=== PATIENT | male | born 1985 | race Caucasian/White ===

== ENCOUNTER 2023-06-16 07:53 | Emergency (ER) | payer OTHER, MEDICAID, SELFPAY ==
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
[2023-06-16 08:32] VITALS: BP 137/83; PULSE 85; RESP 18; TEMP 36.6; O2SAT 99; BMI 24.3
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
--- NOTE | 2023-06-16 09:36 | PC.NURSE ---
pt to xray at this time. will administer medication when able.
[2023-06-16] MEDS: Ketorolac Tromethamine 30 MG/ML VIAL IM (09:59)
--- NOTE | 2023-06-16 10:00 | PC.NURSE ---
pt medicated per provider order. pt awaiting xray results at this time.
== END 2023-06-16 11:39 | disposition home or self-care (01) ==
PROVIDERS: Emergency Provider Emergency Medicine
DX: S39.92XA Unspecified injury of lower back, initial encounter (principal); S49.92XA Unspecified injury of left shoulder and upper arm, initial encounter; M25.512 Pain in left shoulder; R07.81 Pleurodynia; V43.52XA Car driver injured in collision with other type car in traffic accident, initial encounter; Y93.9 Activity, unspecified; Y92.410 Unspecified street and highway as the place of occurrence of the external cause; Y99.9 Unspecified external cause status; Z79.899 Other long term (current) drug therapy
CPT/HCPCS: 71101; 72100; 73030; 96372; 99283; 99284; J1885

== ENCOUNTER 2024-10-08 08:19 | Outpatient (REF) | payer OTHER, MEDICAID, SELFPAY ==
--- OUTSIDE RECORDS SUMMARY | 2024-10-08 08:52 | XMS_ITS | Encounter Summary ---
Author Organization [employer] Address [address] [place] [address] Care Team Providers Care Soccer Player Name Role Phone Lexie Correa Primary Care Provider [phone] Reason for Referral * Consultation (Routine) - Authorized Specialty Diagnoses / Procedures Referred By Edwar tomas Referred To Contact Family Medicine Diagnoses Alopecia areata, unspecified Lexie Correa FNP [address] [place] [address] Phone: tel: fax: Referral ID Status Reason Start Date Expiration Date Visits Requested Visits Authorized [id number] Authorized Specialty Services Required 10/04/2024 10/04/2025 1 1 Encounter Details Date Type Department Care Team (Late st Contact Info) Description 10/04/2024 10:30 AM EST Office Visit [facility] [address] [place] [address] [facility] [address] [place] [address] Tinea versicolor (Primary Dx); Alopecia areata, unspecified; Encounter for immunization; Healthcare maintenance; Dietary counseling; Exercise counseling Social History Tobacco Use Types Packs/Day Years Used Date Smoking Tobacco: Former Cigarettes Passive Smoke Exposure: Past Smokeless Tobacco: Former Tobacco Cessation:Counseling Given: Not Answered Depression Answer Date Recorded Patient Health Questionnaire-9 Score 0 10/04/2024 Patient Health Questionnaire-9 Score 0 10/04/2024 Last PHQ-9: Questionnaire Data Not on file 0 10/04/2024 Housing Stability Answer Date Recorded What is your housing situation today? I have hilary cerrato 10/04/[address] you li ve. Do you have problems with any of the following? None of the above 10/04/2024 Food Insecurity Answer Date Recorded Within the past 12 months, y ou worried that your food would run out before you got money to buy more: Never True 10/04/2024 Within the past 12 months,th e food you bought just didn't last and you didn't have enough money to get more: Never True 01/2025 Transportation Answer Date Recorded In the past 12 months, has l ack of transportation kept you from medical appts, meetings, work or from getting things needed for daily living? No 10/04/2024 Utilities Answer Date Recorded In the past 12 months, has t he electric, gas, oil or water company threatened to shut off services in your home? No 10/04/2024 Depression Answer Date Recorded Patient Health Questionnaire-2 Score 0 10/04/2024 Internet Access Answer Date Recorded Internet Access Q1 Yes 10/04/2024 Internet Access Q2 Not on file 10/04/2024 Sex and Gender Information Value Date Recorded Sex Assigned at Male 11/04/2022 11:07 AM EDT Legal Sex Male 11:05 AM EDT Gender Identity Male 11/04/2022 11:07 AM EDT Sexual Orientation Straight 11/04/2022 11 :07 AM EDT documented as of this encounter Last Filed Vital Signs Vital Sign Reading Time Taken Comments Blood Pressure 122/88 10/04/2024 11:15 AM EST Pulse 80 10/04/2024 11:15 AM EST Temperature 36.2 ??C (97.2 ??F) 10/04/2024 11:[address] Respiratory Rate 20 10/04/2024 11:15 AM EST Oxygen Saturation - - Inhaled Oxygen Concentration - - Weight 77.7 kg (171 lb 4 oz) 10/04/2024 11:15 AM EST Height 175.3 cm (5' 9 ) 10/04/2024 11:15 AM EST Body Mass Index 25.29 10/04/2024 11:15 AM EST documented in this encounter Progress Notes * [facility], [facility] - 10/04/2024 10:30 AM EST SUBJECTIVE Kei Ford is a 39 y.o. year old male who presents today for new patient visit. He is accompanied by his , Deysi. Acute Concerns: Wide spread body rash; worse in hot weather present X 2 years. Mild pruritus Hair loss-present for several years, worsening. Significant family history of alopecia Chronic Conditions: None. 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 HENT: Negative. Respiratory: Negative for chest tightness and shortness of breath. Cardiovascular: Negative for chest pain and palpitations. Gastrointestinal: Negative for abdominal pain. Skin: Positive for rash. OBJECTIVE Vitals: 10/04/24 1115 BP: 122/88 Pulse: 80 Resp: 20 Temp: 97.2 ??F (36.2 ??C) Physical Exam Constitutional: Appearance: Normal appearance. HENT: Head: Normocephalic. Right Ear: External ear normal. Left Ear: External ear normal. Nose: Nose normal. Eyes: Conjunctiva/sclera: Conjunctivae normal. Cardiovascular: Rate and Rhythm: Normal rate and regular rhythm. Heart sounds: Normal heart sounds. Pulmonary: Effort: Pulmonary effort is normal. Breath sounds: Normal breath sounds. Musculoskeletal: Right lower leg: No edema. Left lower leg: No edema. Skin: General: Skin is warm and dry. Capillary Refill: Capillary refill takes less than 2 seconds. Comments: Diffuse hypopigmented coalescent macules with overlying fine white scale along bilateral forearms and lower abdomen Multiple round patches of hair loss throughout scalp, some scarring. No erythema or skin flaking. Neurological: General: No focal deficit present. Mental Status: He is alert and oriented to person, place, and time. Psychiatric: Mood and Affect: Mood normal. Behavior: Behavior normal. ASSESSMENT/PLAN Tinea Versicolor -Body rash can consistent with tinea versicolor - Will treat with topical ketoconazole wash for 2 weeks - Monitor symptoms and return to clinic if no improvement Alopecia -Significant hair loss with concern for possible scarring alopecia - Will check baseline labs, thyroid study and refer to dermatology Healthcare maintenance - Excepts baseline labs and routine STI screening - Accepts flu vaccine -Tdap is listed as a care gap--pt states he received it at [facility] last week - Encouraged regular aerobic exercise within initial goal of 30 minute walk 3x/week - Encouraged balanced diet with a variety of fruits, vegetables, and lean meats. Diagnosis Plan 1. Tinea versicolor 2. Alopecia areata, unspecified TSH W/Reflex to FT4 CBC auto differential TSH W/Reflex to FT4 CBC auto differential Referral to [facility] Derm Skin Adult 3. Encounter for immunization FLU VACCINE TRIVALENT (Fluarix) 6 mo + 4. Healthcare maintenance Comprehensive Metabolic Panel Lipid Panel, Standard HIV-1/2 Antigen and Antibodies, Fourth Generation, with Reflexes Hepatitis A,B,C Profile Syphilis Screen Hemoglobin A1c Comprehensive Metabolic Panel Lipid Panel, Standard HIV-1/2 Antigen and Antibodies, Fourth Generation, with Reflexes Hepatitis A,B,C Profile Syphilis Screen Hemoglobin A1c 5. Dietary counseling 6. Exercise counseling Follow Up: 1 year routine physical, sooner pending lab results Current Outpatient Medications: famotidine (Pepcid) 20 MG tablet, Take 1 tablet (20 mg) by mouth 2 times daily., Disp: 60 tablet, Rfl: 1 Romansh Translation: Patient is bilingual and declines translation services documented in this encounter Plan of Treatment Scheduled Orders Name Type Priority Associated Diagnoses Orde r Schedule Comprehensive Metabolic Panel Lab Routine Healthcare maintenance Expected: 10/04/2024 (Approximate), Expires: 10/04/2025 Lipid Panel, Standard Lab Routine Healthcare maintenance Expected: 10/04/2024 (Approximate), Expires: 10/04/2025 HIV-1/2 Antigen and Antibodies, Fourth Generation, with Reflexes Lab Routine Healthcare maintenance Expected: 10/04/2024 (Approximate), Expires: 10/04/2025 Hepatitis A,B,C Profile Lab Routine Healthcare maintenance Expected: 10/04/2024, Expires: 10/04/2025 Syphilis Screen Lab Routine Healthcare maintenance Expected: 10/04/2024, Expires: 10/04/2025 TSH W/Reflex to FT4 Lab Routine Alopecia areata, unspecified Expected: 10/04/2024 (Approximate), Expires: 10/04/2025 Hemoglobin A1c Lab Routine Healthcare maintenance Expected: 10/04/2024 (Approximate), Expires: 10/04/2025 CBC auto differential Lab Routine Alopecia areata, unspecified Expected: 10/04/2024 (Approximate), Expires: 10/04/2025 Scheduled Referrals Name Type Priority Associated Diagnoses Orde r Schedule Referral to [facility] Derm Skin Adult Outpatient Referral Routine Alopecia areata, unspecified Expected: 10/04/2024 (Approximate), Expires: 10/04/2025 documented as of this encounter Visit Diagnoses Diagnosis Tinea versicolor- Primary Pityriasis versicolor Alopecia areata, unspecified Encounter for immunization Healthcare maintenance Dietary counseling Dietary surveillance and counseling Exercise counseling documented in this encounter Additional Health Concerns Assessment Noted Time PHQ-9 Depression Total Score: 0 10/05/19 25 11:18 AM EST documented as of this encounter Care Teams Soccer Player Relationship Specialty Start Date End Date Lexie Correa FNP [address] [place] [id number] PCP - General Family Medicine 10/04/24 documented as of this encounter
--- OUTSIDE RECORDS SUMMARY | 2024-10-08 08:52 | XMS_ITS | Encounter Summary ---
Author Organization [employer] Address [address] [place] [address] Care Team Providers Care Bill Recapitulation Clerk Name Role Phone [facility] Primary Care Provider [phone] Encounter Details Date Type Department Care Team (Latest Contact Info) Description 10/04/2024 Travel Social History Tobacco Use Types Packs/Day Years Used Date Smoking Tobacco: Former Cigarettes Passive Smoke Exposure: Past Smokeless Tobacco: Former Depression Answer Date Recorded Patient Health Questionnaire-9 [...] AM EDT documented as of this encounter Plan of Treatment Not on file documented as of this encounter Visit Diagnoses Not on filedocumented in this encounter Additional Health Concerns Assessment Noted Time PHQ-9 Depression Total Score: 0 10/05/19 11:18 AM EST documented as of this encounter Care Teams Bill Recapitulation Clerk Relationship Specialty Start Date End Date Lexie Correa FNP [address] [place] [id number] PCP - General Family Medicine 10/04/24 documented as of this encounter
--- OUTSIDE RECORDS SUMMARY | 2024-10-08 08:52 | XMS_ITS | Encounter Summary ---
Author Organization [employer] Address [address] [place] [address] Care Team Providers Care Claim Auditor Name Role Phone Unavailable Primary Care Provider Unavailabl e Encounter Details Date Type Department Care Team (Latest Contact Info) Description 10/02/2024 Travel Social History Tobacco Use Types Packs/Day Years Used Date Smoking Tobacco: Never Assessed Sex and Gender Information Value Date Recorded [...]
--- OUTSIDE RECORDS SUMMARY | 2024-10-08 08:53 | XMS_ITS | Clinical Summary ---
Author Organization [employer] Address [address] [facility] 7t [place] [address] Care Team Providers Care Technical Engineer Name Role Phone [facility] Primary Care Provider [phone] Allergies No known active allergies Medications famotidine (Pepcid) 20 MG tabletIndication s:Epigastric pain,Gastroesoph ageal reflux disease, unspecified whether esophagitis present Take 1 tablet (20 mg) by mouth 2 times daily. 60 tablet 1 4 07/25/20 25 Active ketoconazole (NIZOral) 2 % shampoo Apply topically and leave on for 5 minutes. Then rinse. Apply once daily for 2 weeks. 120 mL 1 5 Active Active Problems Problem Noted Date Diagnosed Date Varicella without complication 07/25/2024 Assessment & Plan (07/25/2024 3:06 PM EST): Drink plenty of fluids and rest Quarantine Epigastric pain 07/25/2024 Assessment & Plan (07/25/2024 3:07 PM EST): I advise patient to avoid NSAIDs, spicy and acid food, I advise to eat at the same time every day, I advise to elevate the head of the bed and take medications as prescribe GERD (gastroesophageal reflux disease) Assessment & Plan (07/25/2024 3:07 PM EST): As above Chronic migraine with aura 07/25/2024 Assessment & Plan (07/25/2024 3:08 PM EST): I advise to avoid migraine triggers like red wine, chocolate, cheese, strong perfumes For now acetaminophen PRN until varicella symptoms subside then f/u with PCP new appointment for management of chronic migraines Encounters Date Type Department Care Team Description 10/04/2024 10:30 AM EST Office Visit [facility] [address] [place] [address] Sturgis, Lexie, SECURITY DELIVERY SPECIALIST Tinea versicolor (Primary Dx); Alopecia areata, unspecified; Encounter for immunization; Healthcare maintenance; Dietary counseling; Exercise counseling 10/04/2024 Travel 10/02/2024 Travel 07/25/2024 2:40 PM EST Office Visit [facility] [address] [place] [address] Zeinab Marquez MD Epigastric pain (Primary Dx); Varicella without complication; Gastroesophageal reflux disease, unspecified whether esophagitis present; Chronic migraine with aura without status migrainosus, not intractable from Last 3 Months Immunizations Name Administration Dates Next Due Influenza, seasonal, injectable, preservative fr ee 10/04/2024 Social History Tobacco Use Types Packs/Day Years [...] Orientation Straight 11/04/2022 11 :07 AM EDT Last Filed Vital Signs Vital Sign Reading Time Taken Comments Blood Pressure 122/88 10/04/2024 11:15 AM EST Pulse 80 10/04/2024 11:15 AM EST Temperature 36.2 ??C (97.2 ??F) 10/04/2024 11:[address] Respiratory Rate 20 10/04/2024 11:15 AM EST Oxygen Saturation 96% 07/25/2024 2:27 PM EST Inhaled Oxygen Concentration - - Weight 77.7 kg (171 lb 4 oz) 10/04/2024 11:15 AM EST Height 175.3 cm (5' 9 ) 10/04/2024 11:15 AM EST Body Mass Index 25.29 10/04/2024 11:15 AM EST Plan of Treatment Health Maintenance Due Date Last Done Comments HIV Screening 1987 Lipid Panel 1987 Family Planning (PISQ) 2002 Hepatitis C Screening 2005 DTaP/Tdap/Td Vaccines (1 - Tdap) 2006 Hepatitis B Vaccines (1 of 3 - 19+ 3-dose series) 2006 COVID-19 Vaccine ( - 2023-2 5 season) 2024 Alcohol/Substance Use Screening 10/04/2025 10/04/2024 Depression Screening 10/04/2025 10/04/2024, 10/04/2024 SDOH Screening 10/04/2025 10/04/2024 Tobacco Screening 10/06/2025 10/06/2024 Zoster Vaccines (1 of 2) 2037 RSV Patients and Patients Aged 60 years or older (1 - 1-dose 75+ series) 2062 Influenza Vaccine Completed 10/04/2024 HIB Vaccines Aged Out No longer eligi ble based on patient's age to complete this topic HPV Vaccines Aged Out No longer eligi ble based on patient's age to complete this topic Hepatitis A Vaccines Aged Out No long er eligible based on patient's age to complete this topic IPV Vaccines Aged Out No longer eligi ble based on patient's age to complete this topic Meningococcal Vaccine Aged Out No sierra maya eligible based on patient's age to complete this topic Pneumococcal Vaccine: Pediatrics (0 to 5 Years) and At-Risk Patients (6 to 49) Years) Aged Out No longer eligible b ased on patient's age to complete this topic RSV under 20 months Aged Out No longe r eligible based on patient's age to complete this topic Rotavirus Vaccines Aged Out No longer eligible based on patient's age to complete this topic [facility] Care Teams Technical Engineer Relationship Specialty Start Date End Date Lexie Correa FNP [address] [place] [phone] PCP - General Family Medicine 10/04/24
[2024-10-08 11:42] LABS: MANUAL DIFF FLAG NO
[2024-10-08 11:45] LABS: Basophils Absolute Auto 0.1 X10*3/uL (0.0-0.2); Basophils Percent Auto 0.9 % (0-2); Eosinophils Absolute Auto 0.2 X10*3/uL (0.0-0.4); Eosinophils Percent Auto 2.9 % (0-4); Hematocrit 44.3 % (42.0-52.0); Hemoglobin 15.1 g/dl (14.0-18.0); Imm Gran Abs Auto 0.02 X10*3/uL (0.00-0.03); Imm Gran Pct Auto 0.3 % (0.0-0.4); Lymphocytes Absolute Auto 2.3 X10*3/uL (1.2-4.9); Mean Corpuscular HGB Conc 34.1 g/dl (31.0-36.0); Mean Corpuscular Hemoglobin 30.5 pg (27.0-33.0); Mean Corpuscular Volume 89.5 fL (80.0-98.0); Mean Platelet Volume 12.1 fL (9.4-12.4); Monocytes Absolute Auto 0.4 X10*3/uL (0.1-1.2); Monocytes Percent Auto 6.5 % (2-11); Neutrophils Absolute Auto 3.4 x10*3/uL (2.0-8.3); Neutrophils Percent Auto 53.4 % (45-73); Platelet Count 227 X10*3/uL (160-400); Red Blood Count 4.95 X10*6/uL (4.60-5.80); Red Cell Distribution Width 13.2 % (11.0-16.0); White Blood Count 6.5 X10*3/uL (4.8-10.8)
[2024-10-08 11:54] LABS: Estimated Average Glucose 105 mg/dL; Hemoglobin A1c % 5.3 % (<6.0)
[2024-10-08 12:17] LABS: Syphilis Screen Nonreactive (Nonreactive)
[2024-10-08 12:32] LABS: HBS Num1 59.44 mIU/mL (0-7.99); HBc Num1 0.07 S/CO (0.00-0.79); HIV AB/AG Nonreactive (Nonreactive); HIV Num 1 0.07 S/CO (0.00-0.99); Hepatitis A Antibody IgM 0.17 Index (0-0.79); Hepatitis B Core Antibody Nonreactive (Nonreactive); Hepatitis B Surface Antigen Negative (Negative); ~HepC Num1 0.19 S/CO (0.00-0.79); ~Hepatitis A Antibody IgM Nonreactive (Nonreactive); ~Hepatitis B Surface Antibody REACTIVE (Nonreactive); ~Hepatitis C Antibody Nonreactive (Nonreactive)
[2024-10-08 12:37] LABS: Alanine Aminotransferase 168 U/L (0-40); Albumin Level 4.5 g/dL (3.5-5.0); Alkaline Phosphatase 72 U/L (39-117); Anion Gap 11 (12-20); Aspartate Amino Transferase 71 U/L (5-37); Bilirubin Total 0.8 mg/dL (0.0-1.0); Blood Urea Nitrogen 10 mg/dL (9-16); Calcium 9.3 mg/dL (8.4-10.2); Carbon Dioxide 29 mmol/L (22-29); Chloride 105 mmol/L (96-108); Cholesterol 261 mg/dL (<200); Estimated Glomerular Filt Rate > 60; Glucose Random 96 mg/dL (60-115); HDL Cholesterol 36 mg/dL (>40); LDL Cholesterol Calculated 175 mg/dL (<100); Sodium 141 mmol/L (135-145); TSH reflex Free T4 1.19 uIU/mL (0.32-4.0); Total Protein 8.3 g/dL (6.5-8.0); Triglycerides 253 mg/dL (<150)
== END 2024-10-08 08:20 | disposition home or self-care (01) ==
LOC: HO.HHCL 08:19
PROVIDERS: Visit Provider Registered Nurse
DX: Z00.00 Encounter for general adult medical examination without abnormal findings (principal); L63.9 Alopecia areata, unspecified; Z13.6 Encounter for screening for cardiovascular disorders; Z13.1 Encounter for screening for diabetes mellitus
CPT/HCPCS: 36415; 80053; 80061; 83036; 84443; 85025; 86704; 86706; 86709; 86780; 86803; 87340; 87389

== ENCOUNTER 2024-11-05 10:02 | Outpatient (REF) | payer OTHER, MEDICAID, SELFPAY ==
[2024-11-05 11:34] LABS: Alanine Aminotransferase 153 U/L (0-40); Albumin Level 4.5 g/dL (3.5-5.0); Alkaline Phosphatase 89 U/L (39-117); Aspartate Amino Transferase 71 U/L (5-37); Bilirubin Direct 0.2 mg/dL (0.0-0.5); Bilirubin Total 0.5 mg/dL (0.0-1.0); Total Protein 7.4 g/dL (6.5-8.0)
--- OUTSIDE RECORDS SUMMARY | 2024-11-05 11:42 | XMS_ITS | Encounter Summary ---
Author Organization [employer] Address 75 [facility] 7t [place] [address] Care Team Providers Care Machine Operator Hay Stacker Name Role Phone [place] Primary Care Provider [phone] Reason for Visit * Reason Onset Date Comments Appointment Request 10/18/2024 Encounter Details Date Type Department Care Team ([facility] st Contact Info) Description 10/18/2024 Telephone [facility] [address] [place], [place] [phone] [facility] [address] [place], [place] [phone] Appointment Request Social History Tobacco Use Types Packs/Day Years [...] AM EDT documented as of this encounter Miscellaneous Notes * Telephone Encounter - Peyton Eddy - 10/18/2024 10:11 AM EDT Tc from pt requesting schedule Derm appt. [phone] cymro documented in this encounter Plan of Treatment Not on file documented as of this encounter Visit Diagnoses Not on filedocumented in this encounter Additional Health Concerns Assessment Noted Time PHQ-9 Depression Total Score: 0 10/05/19 11:18 AM EST documented as of this encounter Care Teams Machine Operator Hay Stacker Relationship Specialty Start Date End Date Lexie Correa FNP [address] [place] [phone] PCP - General Family Medicine 10/04/24 documented as of this encounter
--- OUTSIDE RECORDS SUMMARY | 2024-11-05 11:42 | XMS_ITS | Clinical Summary ---
Author Organization [employer] Address [address] [facility] 7t [place] [address] Care Team Providers Care Head Setter Name Role Phone [facility] Primary Care Provider [phone] Allergies No known active allergies Medications famotidine [...] Encounters Date Type Department Care Team Description 10/18/2024 Orders Only [facility] [address] [place] [address] Lexie Correa FNP Elevated liver enzymes (Primary Dx) 10/18/2024 Telephone [facility] [address] [place] [address] SunnyLexie samuel FNP Appointment Request 10/11/2024 Population Health Risk Score [facility] Department [address] [phone] Provider, Population Health Generic 10/04/2024 10:30 AM EST Office Visit [facility] [address] [place] [address] Lexie Correa FNP Tinea versicolor (Primary Dx); Alopecia areata, unspecified; Encounter for immunization; Healthcare maintenance; Dietary counseling; Exercise counseling 10/04/2024 Travel 10/02/2024 Travel from Last 3 Months Immunizations Name Administration [...] Health Maintenance Due Date Last Done Comments Family Planning (PISQ) 2002 DTaP/Tdap/Td Vaccines (1 - Tdap) 2006 Hepatitis B Vaccines (1 of 3 - 19+ 3-dose series) 2006 COVID-19 Vaccine (2023-2 5 season) 2024 Alcohol/Substance Use Screening 10/04/2025 10/04/2024 Depression Screening 10/04/2025 10/04/2024, 10/04/2024 SDOH Screening 10/04/2025 10/04/2024 Tobacco Screening 10/06/2025 10/06/2024 Lipid Panel 10/08/2029 10/08/2024 Zoster Vaccines (1 of 2) 2037 RSV Patients and Patients Aged 60 years or older (1 - 1-dose 75+ series) 2062 Influenza Vaccine Completed 10/04/2024 HIV Screening Completed 10/08/2024 Hepatitis C Screening Completed 10/08/2024 HIB Vaccines Aged Out No longer eligi [...] on patient's age to complete this topic Procedures Procedure Name Priority Date/Time Associated Diagnosis Comments HEPATIC FUNCTION PANEL Routine 10:04 AM EDT Elevated liver enzymes CBC WITH AUTO DIFFERENTIAL Routine 10/08/2024 8:21 AM EDT Alopecia areata, unspecified HEMOGLOBIN A1C Routine 10/08/2024 8:21 AM EDT Healthcare maintenance TSH W/REFLEX TO FT4 Routine 10/08/2024 8 :21 AM EDT Alopecia areata, unspecified SYPHILIS SCREEN Routine 10/08/2024 8:21 AM EDT Healthcare maintenance HEPATITIS PANEL, GENERAL Routine 10/08/2024 8:21 AM EDT Healthcare maintenance HIV 1/2 ANTIGEN/ANTIBODY, FOURTH GENERATION W/RFL Routine 10/08/2024 8:21 AM EDT Healthcare maintenance LIPID PANEL, STANDARD Routine 10/08/2024 8:21 AM EDT Healthcare maintenance COMPREHENSIVE METABOLIC PANEL Routine 10/08/2024 8:21 AM EDT Healthcare maintenance from Last 3 Months Results * (ABNORMAL) Hepatic Function Panel (11/05/2024 10:04 AM EDT) Pathologist [facility] Bilirubin, Total 0.5 0.0 - 1.0 mg/dL [facility] Bilirubin, Direct 0.2 0.0 - 0.5 mg/dL [facility] Aspartate Amino Transferase 71(H) 5 - 37 U/L [facility] Alanine Aminotransferase 153(H) 0 - 40 U/L [facility] Total Protein 7.4 6.5 - 8.0 g/dL [facility] Albumin Level 4.5 3.5 - 5.0 g/dL [facility] Alkaline Phosphatase 89 39 - 117 U/L [facility] Blood Venous blood specimen / Unknown 11/05/2024 10:04 AM EDT 11/05/2024 11:07 AM EDT [facility] LAB BLOOD ORDERABLES Final Re sult Performing Organization Address [facility] Co de Phone Number [facility] [address] [place] [phone] * Syphilis Screen (10/08/2024 8:21 AM EDT) [facility] Syphilis Screen Nonreactive Nonreactive [facility] Blood 10/08/2024 8:21 AM EDT 10/08/2024 11:29 AM EDT [facility] LAB BLOOD ORDERABLES Final Re sult Performing Organization Address [facility] Co de Phone Number [facility] [address] [place] [phone] * TSH W/Reflex to FT4 (10/08/2024 8:21 AM EDT) Pathologist [facility] TSH reflex Free T4 1.19 0.32 - 4.0 uIU/mL [facility] Blood Venous blood specimen / Unknown 10/08/2024 8:21 AM EDT 10/08/2024 11:29 AM EDT [facility] LAB BLOOD ORDERABLES Final Re sult Performing Organization Address [facility] de Phone Number [facility] [address] [place] [phone] * Hepatitis A,B,C Profile (10/08/2024 8:21 AM EDT) [facility] Hepatitis A IgM Nonreactive Nonreactive [facility] Comment:IgM antibodies to CEJA V not detected; does not exclude earlyacute or recovered HAV infection. ~Hepatitis B Surface Antibody REACTIVE Nonreactive [facility] Comment:REACTIVE: > 11.99 mI U/mL Hepatitis B Core Antibody Nonreactive Nonreactive [facility] Hepatitis C Antibody Nonreactive Nonreactive [facility] Comment:Antibodies to HCV no t detected; does not exclude early acuteHCV infection. Hepatitis B Surface Ag Negative Negative [facility] Blood Venous blood specimen / Unknown 10/08/2024 8:21 AM EDT 10/08/2024 11:29 AM EDT [facility] LAB BLOOD ORDERABLES Final Re sult Performing Organization Address [facility] de Phone Number [facility] [address] [place] [phone] * CBC auto differential (10/08/2024 8:21 AM EDT) [facility] White Blood Count 6.5 4.8 - 10.8 X10*3/uL [facility] Red Blood Count 4.95 4.60 - 5.80 X10*6/uL [facility] Hemoglobin 15.1 14.0 - 18.0 g/dl [facility] Hematocrit 44.3 42.0 - 52.0 % [facility] Mean Corpuscular Volume 89.5 80.0 - 98.0 fL [facility] Mean Corpuscular Hemoglobin 30.5 27.0 - 33.0 pg [facility] Mean Corpuscular HGB Conc 34.1 31.0 - 36.0 g/dl [facility] Red Cell Distribution Width 13.2 11.0 - 16.0 % [facility] Platelet Count 227 160 - 400 X10*3/uL [facility] Mean Platelet Volume 12.1 9.4 - 12.4 fL [facility] Neutrophils Percent Auto 53.4 45 - 73 % [facility] Imm Gran Pct Auto 0.3 0.0 - 0.4 % [facility] Lymphocytes Percent Auto 36.0 20 - 40 % [facility] Monocytes Percent Auto 6.5 2 - 11 % [facility] Eosinophils Percent Auto 2.9 0 - 4 % [facility] Basophils Percent Auto 0.9 0 - 2 % [facility] NRBC Pct Auto 0.0 0.0 - 0.2 /100WBC [facility] Neutrophils Absolute Auto 3.4 2.0 - 8.3 x10*3/uL [facility] Imm Gran Abs Auto 0.02 0.00 - 0.03 X10*3/uL [facility] Lymphocytes Absolute Auto 2.3 1.2 - 4.9 X10*3/uL [facility] Monocytes Absolute Auto 0.4 0.1 - 1.2 X10*3/uL [facility] Eosinophils Absolute Auto 0.2 0.0 - 0.4 X10*3/uL [facility] Basophils Absolute Auto 0.1 0.0 - 0.2 X10*3/uL [facility] NRBC Abs Auto 0.000 0.0 - 0.012 X10*3/uL [facility] Blood Venous blood specimen / Unknown 10/08/2024 8:21 AM EDT 10/08/2024 11:29 AM EDT [facility] LAB BLOOD ORDERABLES Final Re sult Performing Organization Address City/[facility]/ZIP Co de Phone Number [facility] [address] [place] [phone] * HIV-1/2 Antigen and Antibodies, Fourth Generation, with Reflexes (10/08/2024 8:21 AM EDT) HIV AB/AG Nonreactive Nonreactive [facility] Comment:HIV-1 p24 Ag and/or HIV-1/HIV-2 Ab not detected.A test result that is nonreactive does not exclude thepossibility of exposure to or infection with HIV-1 and/orHIV-2. Nonreactive results in this assay for individualswith prior exposure to HIV-1 and/or HIV-2 may be due toantigen and antibody levels that are below the limit ofdetection of this assay.[employer] HIV Ag/Ab Combo assay result andsupplemental assay results should be interpreted inconjunction with the patient's clinical presentation,history and other laboratory results. If the results areinconsistent with clinical evidence, additional testing issuggested to confirm the result. Blood Venous blood specimen / Unknown 10/08/2024 8:21 AM EDT 10/08/2024 11:29 AM EDT [facility] LAB BLOOD ORDERABLES Final Re sult Performing Organization Address [facility]/ZIP Co de Phone Number [facility] [address] [place] [phone] * Hemoglobin A1c (10/08/2024 8:21 AM EDT) Hemoglobin A1c 5.3 <6.0 % [facility] Comment:Hemoglobin A1C Refer ence Range Adults: 4.8 - 6.0 % Non diabetic: < 6.0 % Goal: < 7.0 %Additional Action Suggested: > 8.0 %Note: Hemoglobin A1c results are invalid for patients with abnormal amounts of HbF. Blood transfusions may impact the HbA1c concentration in the patient sample. Estimated Average Glucose 105 mg/dL [facility] Comment:eAG = Estimated ave rage glucose which is %A1C expressed asaverage glucose, using the formula of the [id number] Glucose study (ADAG), Diabetes Care, Vol.31,#8,Feb. 2007 Blood Venous blood specimen / Unknown 10/08/2024 8:21 AM EDT 10/08/2024 11:29 AM EDT [facility] LAB BLOOD ORDERABLES Final Re sult Performing Organization Address City/[facility] Co de Phone Number [facility] [address] [place] [phone] * (ABNORMAL) Lipid Panel, Standard (10/08/2024 8:21 AM EDT) Triglycerides 253(H) <150 mg/dL [facility] Comment:Desirable Triglyceri de: less than 150 mg/dLBorderline High Triglyceride 150-199 mg/dLHigh Triglyceride: 200-499 mg/dLVery High Triglyceride: greater than or equal to 5OO mg/dL Cholesterol 261(H) <200 mg/dL [facility] Comment:Desirable Cholestero l: less than 200 mg/dLBorderline High Cholesterol: 200-239 mg/dLHigh Cholesterol: greater than 239 mg/dL LDL Cholesterol Calculated 175(H) <100 mg/dL [facility] Comment:Desirable LDL: less than 100 mg/dLNear Optimal/Above Optimal LDL: 110- 129 mg/dLBorderline High LDL: 130-159 mg/dLHigh LDL: 160-189 mg/dLVery High LDL: greater than or equal to 190 mg/dL HDL Cholesterol 36(L) >40 mg/dL [facility] Comment:Desirable HDL: great er than 40 mg/dL Note: This HDL assay may give artificially low results in patients with liver disease. Blood Venous blood specimen / Unknown 10/08/2024 8:21 AM EDT 10/08/2024 11:29 AM EDT [facility] LAB BLOOD ORDERABLES Final Re sult [facility] [address] [place] [phone] * (ABNORMAL) Comprehensive Metabolic Panel (10/08/2024 8:21 AM EDT) Sodium 141 135 - 145 mmol/L [facility] Potassium 4.0 3.3 - 5.1 mmol/L [facility] Chloride 105 96 - 108 mmol/L [facility] Carbon Dioxide 29 22 - 29 mmol/L [facility] Anion Gap 11(L) 12 - 20 [facility] Urea Nitrogen (BUN) 10 9 - 16 mg/dL [facility] Creatinine, Serum 0.96 0.5 - 1.4 mg/dL [facility] Estimated Glomerular Filt Rate >60 [facility] Comment:Chronic Kidney Disea se: Estimated GFR < 60 mL/min/1.72s4Ahrgox Kidney Disease: Estimated GFR < 15 mL/min/1.73m2 Glucose 96 60 - 115 mg/dL [facility] Calcium 9.3 8.4 - 10.2 mg/dL [facility] Bilirubin, Total 0.8 0.0 - 1.0 mg/dL [facility] Aspartate Amino Transferase 71(H) 5 - 37 U/L [facility] Alanine Aminotransferase 168(H) 0 - 40 U/L [facility] Total Protein 8.3(H) 6.5 - 8.0 g/dL [facility] Albumin Level 4.5 3.5 - 5.0 g/dL [facility] Alkaline Phosphatase 72 39 - 117 U/L [facility] Blood Venous blood specimen / Unknown 10/08/2024 8:21 AM EDT 10/08/2024 11:29 AM EDT [facility] LAB BLOOD ORDERABLES Final Re sult [facility] [address] [place] [address] [phone] from Last 3 Months Insurance Care Teams Head Setter Relationship Specialty Start Date End Date SunnyLexie samuel FNP [address] [place] [phone] PCP - General Family Medicine 10/04/24
== END 2024-11-05 10:03 | disposition home or self-care (01) ==
LOC: HO.HHCL 10:02
PROVIDERS: Visit Provider Registered Nurse
DX: R74.8 Abnormal levels of other serum enzymes (principal)
CPT/HCPCS: 36415; 80076

== ENCOUNTER 2024-12-11 08:23 | Outpatient (REF) | payer MEDICAID, SELFPAY ==
--- NOTE | ~2024-12-11 | US_ITS ---
EXAMINATION: US ABDOMEN HISTORY: 39-year-old male with persistent liver enzyme elevation TECHNIQUE: Real-time grayscale ultrasound imaging of the abdomen was performed and images were reviewed. COMPARISON: There are no prior studies for comparison. FINDINGS: Liver: The right lobe of the liver measures 18.1 cm in size. The left lobe of the liver measures 14.7 cm in size. The liver demonstrates increased echotexture, consistent with steatosis. No focal mass or intrahepatic biliary ductal dilatation is identified. There is normal hepatopedal flow in the portal vein. Gallbladder and biliary tree: The gallbladder is unremarkable, without evidence of calculi, wall thickening, or pericholecystic fluid. There is no sonographic Diaz sign. The common bile duct is normal in caliber measuring 4 mm. Kidneys: The right kidney measures 11.8 cm in length. The left kidney measures 10.0 cm in length. The kidneys are unremarkable, without evidence of masses, hydronephrosis, or calculi. Pancreas: The pancreatic head, neck, and body are unremarkable. The pancreatic tail is obscured by bowel gas. Spleen: The spleen is normal in size and contour, measuring 12.3 cm in length. Abdominal aorta and inferior vena cava: The visualized portions of the abdominal aorta and inferior vena cava are normal in caliber. There is no free fluid in the abdomen. US/US abdomen complete IMPRESSION: Hepatomegaly and hepatic steatosis. Electronically signed by: Michael Moctezuma MD 12/11/2024 08:53 AM EDT
--- OUTSIDE RECORDS SUMMARY | 2024-12-11 08:36 | XMS_ITS | Clinical Summary ---
Author Organization [employer] Address [address] [facility] [address] [place] [address] Care Team Providers Care Green Material Value Added Assessor Name Role Phone [facility] Primary Care Provider [phone] Allergies No known active allergies Medications famotidine [...] Active Problems Problem Noted Date Diagnosed Date Elevated liver enzymes 11/11/2024 Varicella without complication 07/25/2024 Assessment & Plan [...] Encounters Date Type Department Care Team Description 11/11/2024 Telephone [facility] [address] [place] [address] Lexie Correa, NEHEMIAS Results 11/11/2024 Orders Only [facility] [address] [place] [address] [place] FNP Elevated liver enzymes (Primary Dx) 10/18/2024 Orders Only [facility] [address] [place] [address] [place] FNP Elevated liver enzymes (Primary Dx) 10/18/2024 Telephone [facility] [address] [place] [address] Lexie Correa FNP Appointment Request 10/11/2024 Population Health Risk Score [facility] () Department [address] [place] [address] [phone] Provider, Population Health Generic 10/04/2024 10:30 AM EST Office Visit [facility] [address] [place] [address] Lexie Correa FNP Tinea versicolor (Primary Dx); Alopecia areata, unspecified; Encounter for immunization; Healthcare maintenance; Dietary counseling; Exercise counseling 10/04/2024 Travel 10/02/2024 Travel from Last 3 Months Immunizations Immunization Administration Dates Next Due Influenza, seasonal, injectable, [...] 10/04/2024 11:15 AM EST Plan of Treatment Upcoming Encounters Date Type Department Care Team (Late st Contact Info) Description 01/06/2025 9:00 AM EDT Office Visit [facility] [address] [place] [address] [place] Lexie [facility] [address] [place] [address] 02/28/2025 11:15 AM EDT Office Visit [facility] [address] [place] [address] Bryan Arriaga MD [address] [place] [address] Health Maintenance Due Date Last Done Comments Family Planning (PISQ) 2002 DTaP/Tdap/Td Vaccines (1 - Tdap) 2006 Hepatitis B Vaccines (1 of 3 - 19+ 3-dose series) 2006 COVID-19 Vaccine (1 - 2023-2 5 season) 2024 Alcohol/Substance Use [...] Hepatic Function Panel (11/05/2024 10:04 AM EDT) Bilirubin, Total 0.5 0.0 - 1.0 mg/dL [facility] Bilirubin, Direct 0.2 0.0 - 0.5 mg/dL [facility] Aspartate Amino Transferase 71(H) 5 - 37 U/L [facility] Alanine Aminotransferase 153(H) 0 - 40 U/L [facility] Total Protein 7.4 6.5 - 8.0 g/dL [facility] Albumin Level 4.5 3.5 - 5.0 g/dL [facility] Alkaline Phosphatase 89 39 - 117 U/L [facility] Blood Venous blood specimen / Unknown 11/05/2024 10:04 AM EDT 11/05/2024 11:07 AM EDT [facility] [employer] LAB BLOOD ORDERABLES Final Re sult Performing Organization Address [facility]/ZIP Co de Phone Number [facility] [address] [place] [phone] * Syphilis Screen (10/08/2024 8:21 AM EDT) Syphilis Screen Nonreactive Nonreactive [facility] Blood 10/08/2024 8:21 AM EDT 10/08/2024 11:29 AM EDT [facility] LAB BLOOD ORDERABLES Final Re sult Performing Organization Address [facility] Co de Phone Number [facility] [address] [place] [phone] * TSH W/Reflex to FT4 (10/08/2024 8:21 AM EDT) Pathologist [facility] [place] TSH reflex Free T4 1.19 0.32 - 4.0 uIU/mL [facility] Blood Venous blood specimen / Unknown 10/08/2024 8:21 AM EDT 10/08/2024 11:29 AM EDT [facility] LAB BLOOD ORDERABLES Final Re sult Performing Organization Address [facility] Co de Phone Number [facility] [address] [place] [phone] * Hepatitis A,B,C Profile (10/08/2024 8:21 AM EDT) Pathologist [facility] Hepatitis A IgM Nonreactive Nonreactive [facility] Comment:IgM antibodies to CEJA V not detected; does not exclude earlyacute or recovered HAV infection. ~Hepatitis B Surface Antibody REACTIVE Nonreactive [facility] Comment:REACTIVE: > 11.99 mI U/mL Hepatitis B Core Antibody Nonreactive Nonreactive [facility] Hepatitis C Antibody Nonreactive Nonreactive [facility] Comment:Antibodies to HCV no t detected; does not exclude early acuteHCV infection. Hepatitis B Surface Ag Negative Negative [facility] Blood Venous blood specimen / Unknown 10/08/2024 8:21 AM EDT 10/08/2024 11:29 AM EDT [facility] [employer] LAB BLOOD ORDERABLES Final Re sult [facility] [address] [place] [address] [phone] * CBC auto differential (10/08/2024 8:21 AM EDT) White Blood Count 6.5 4.8 - 10.8 X10*3/uL [facility] Red Blood Count 4.95 4.60 - 5.80 X10*6/uL [facility] Hemoglobin 15.1 14.0 - 18.0 g/dl [facility] Hematocrit 44.3 42.0 - 52.0 % [facility] Mean Corpuscular Volume 89.5 80.0 - 98.0 fL [facility] Mean Corpuscular Hemoglobin 30.5 27.0 - 33.0 pg [facility] Mean Corpuscular HGB Conc 34.1 31.0 - 36.0 g/dl [facility] Red Cell Distribution Width 13.2 11.0 - 16.0 % [facility] Platelet Count 227 160 - 400 X10*3/uL [facility] Mean Platelet Volume 12.1 9.4 - 12.4 fL [facility] Neutrophils Percent Auto 53.4 45 - 73 % [facility] Imm Gran Pct Auto 0.3 0.0 - 0.4 % [facility] Lymphocytes Percent Auto 36.0 20 - 40 % [facility] Monocytes Percent Auto 6.5 2 - 11 % [facility] Eosinophils Percent Auto 2.9 0 - 4 % [facility] Basophils Percent Auto 0.9 0 - 2 % [facility] NRBC Pct Auto 0.0 0.0 - 0.2 /100WBC [facility] Neutrophils Absolute Auto 3.4 2.0 - 8.3 x10*3/uL [facility] Imm Gran Abs Auto 0.02 0.00 - 0.03 X10*3/uL [facility] Lymphocytes Absolute Auto 2.3 1.2 - 4.9 X10*3/uL [facility] Monocytes Absolute Auto 0.4 0.1 - 1.2 X10*3/uL [facility] Eosinophils Absolute Auto 0.2 0.0 - 0.4 X10*3/uL [facility] Basophils Absolute Auto 0.1 0.0 - 0.2 X10*3/uL [facility] NRBC Abs Auto 0.000 0.0 - 0.012 X10*3/uL [facility] Blood Venous blood specimen / Unknown 10/08/2024 8:21 AM EDT 10/08/2024 11:29 AM EDT [facility] LAB BLOOD ORDERABLES Final Re sult [facility] [address] [place] [phone] * HIV-1/2 Antigen and Antibodies, Fourth Generation, with Reflexes (10/08/2024 8:21 AM EDT) HIV AB/AG Nonreactive Nonreactive [facility] Comment:HIV-1 p24 Ag and/or HIV-1/HIV-2 Ab not detected.A test result that is nonreactive does not exclude thepossibility of exposure to or infection with HIV-1 and/orHIV-2. Nonreactive results in this assay for individualswith prior exposure to HIV-1 and/or HIV-2 may be due toantigen and antibody levels that are below the limit ofdetection of this assay.The 3Nod HIV Ag/Ab Combo assay result andsupplemental assay results should be interpreted inconjunction with the patient's clinical presentation,history and other laboratory results. If the results areinconsistent with clinical evidence, additional testing issuggested to confirm the result. Blood Venous blood specimen / Unknown 10/08/2024 8:21 AM EDT 10/08/2024 11:29 AM EDT [facility] LAB BLOOD ORDERABLES Final Re sult Performing Organization Address [facility]/ZIP Co de Phone Number [facility] [address] [place] [phone] * Hemoglobin A1c (10/08/2024 8:21 AM EDT) Hemoglobin A1c 5.3 <6.0 % [facility] Comment:Hemoglobin A1C Refer ence Range Adults: 4.8 - 6.0 % Non diabetic: < 6.0 % Goal: < 7.0 %Additional Action Suggested: > 8.0 %Note: Hemoglobin A1c results are invalid for patients with abnormal amounts of HbF. Blood transfusions may impact the HbA1c concentration in the patient sample. Estimated Average Glucose 105 mg/dL [facility] Comment:eAG = Estimated ave rage glucose which is %A1C expressed asaverage glucose, using the formula of the Q8Q-MklikzbHczwypr Glucose study (ADAG), Diabetes Care, Vol.31,#8,Feb. 2007 Blood Venous blood specimen / Unknown 10/08/2024 8:21 AM EDT 10/08/2024 11:29 AM EDT [facility] LAB BLOOD ORDERABLES Final Re sult Performing Organization Address [facility]/ZIP Co de Phone Number [facility] [address] [place] [phone] * (ABNORMAL) Lipid Panel, Standard (10/08/2024 8:21 AM EDT) Triglycerides 253(H) <150 mg/dL [facility] Comment:Desirable Triglyceri de: less than 150 mg/dLBorderline High Triglyceride 150-199 mg/dLHigh Triglyceride: 200-499 mg/dLVery High Triglyceride: greater than or equal to 5OO mg/dL Cholesterol 261(H) <200 mg/dL [facility] Comment:Desirable Cholestero l: less than 200 mg/dLBorderline High Cholesterol: 200-239 mg/dLHigh Cholesterol: greater than 239 mg/dL LDL Cholesterol Calculated 175(H) <100 mg/dL [facility] Comment:Desirable LDL: less than 100 mg/dLNear Optimal/Above Optimal LDL: 110- 129 mg/dLBorderline High LDL: 130-159 mg/dLHigh LDL: 160-189 mg/dLVery High LDL: greater than or equal to 190 mg/dL HDL Cholesterol 36(L) >40 mg/dL [facility] Comment:Desirable HDL: great er than 40 mg/dL Note: This HDL assay may give artificially low results in patients with liver disease. Blood Venous blood specimen / Unknown 10/08/2024 8:21 AM EDT 10/08/2024 11:29 AM EDT [facility] LAB BLOOD ORDERABLES Final Re sult [facility] [address] [place], [place] [phone] * (ABNORMAL) Comprehensive Metabolic Panel (10/08/2024 8:21 AM EDT) Sodium 141 135 - 145 mmol/L [facility] Potassium 4.0 3.3 - 5.1 mmol/L [facility] Chloride 105 96 - 108 mmol/L [facility] Carbon Dioxide 29 22 - 29 mmol/L [facility] Anion Gap 11(L) 12 - 20 [facility] Urea Nitrogen (BUN) 10 9 - 16 mg/dL [facility] Creatinine, Serum 0.96 0.5 - 1.4 mg/dL [facility] Estimated Glomerular Filt Rate >60 [facility] Comment:Chronic Kidney Disea se: Estimated GFR < 60 mL/min/1.89x4Sesxlt Kidney Disease: Estimated GFR < 15 mL/min/1.73m2 Glucose 96 60 - 115 mg/dL [facility] Calcium 9.3 8.4 - 10.2 mg/dL [facility] Bilirubin, Total 0.8 0.0 - 1.0 mg/dL [facility] Aspartate Amino Transferase 71(H) 5 - 37 U/L [facility] Alanine Aminotransferase 168(H) 0 - 40 U/L [facility] Total Protein 8.3(H) 6.5 - 8.0 g/dL [facility] Albumin Level 4.5 3.5 - 5.0 g/dL [facility] Alkaline Phosphatase 72 39 - 117 U/L [facility] Blood Venous blood specimen / Unknown 10/08/2024 8:21 AM EDT 10/08/2024 11:29 AM EDT [facility] [employer] LAB BLOOD ORDERABLES Final Re sult [facility] [address] [place] [phone] from Last 3 Months [facility] Care Teams Green Material Value Added Assessor Relationship Specialty Start Date End Date [facility] [address] [place] [phone] PCP - General Family Medicine 10/04/24
--- OUTSIDE RECORDS SUMMARY | 2024-12-11 08:36 | XMS_ITS | Encounter Summary ---
Author Organization [employer] Address [address] [facility] [address] [place] [address] Care Team Providers Care Operator Coating Furnace Name Role Phone [facility] Primary Care Provider [phone] Reason for Visit * Reason Onset Date Comments Appointment Request 10/18/2024 Encounter Details Date Type Department Care Team ([facility] st Contact Info) Description 10/18/2024 Telephone [facility] [address] [place], [place] [phone] [facility] [address] [place], [place] [phone] Appointment Request Social History Tobacco Use Types [...] Tc from pt requesting schedule Derm appt. [phone] monegasque documented in this encounter Plan of Treatment Upcoming Encounters Date Type Department Care Team (Late st Contact Info) Description 01/06/2025 9:00 AM EDT Office Visit [facility] [address] [place] [phone] Lexie Correa FNP [address] [place] [address] 02/28/2025 11:15 AM EDT Office Visit [facility] [address] [place] [phone] Bryan Arriaga MD [address] [place] [phone] documented as of this encounter Visit Diagnoses Not on filedocumented in this encounter Additional Health Concerns Assessment Noted Time PHQ-9 Depression Total Score: 0 10/05/19 25 11:18 AM EST documented as of this encounter Care Teams Operator Coating Furnace Relationship Specialty Start Date End Date Lexie Correa FNP [address] [place] [phone] PCP - General Family Medicine 10/04/24 documented as of this encounter
== END 2024-12-11 08:24 | disposition home or self-care (01) ==
LOC: HO.HMGCX 08:23
PROVIDERS: PCP Registered Nurse; Visit Provider Registered Nurse
DX: R74.8 Abnormal levels of other serum enzymes (principal)
CPT/HCPCS: 76700

== ENCOUNTER → 2024-12-11 08:25 | Outpatient (BNV) | payer MEDICAID, SELFPAY | PROVIDERS: PCP Registered Nurse; Visit Provider Radiology Diagnostic Radiology | DX: K76.0 Fatty (change of) liver, not elsewhere classified (principal); R16.0 Hepatomegaly, not elsewhere classified | CPT/HCPCS: 76700 ==